=== PATIENT | female | born 1955 | race Caucasian/White ===

== ENCOUNTER 2020-09-12 09:41 | Day surgery (SDC) | payer OTHER ==
[~2020-09-12] VITALS: Ht 157.5 cm; Wt 59.2 kg
[~2020-09-12 09:41] MED LIST: ATOR40TA PO; LEVO50TA PO; PANT20TA4 PO
[2020-09-12 10:07] VITALS: BP 135/97
[2020-09-12] MEDS ORDERED: MIDAZOLAM 1 MG/ML, 2ML ONE (10:17)
[2020-09-12] MEDS ORDERED: FENTANYL PF 100 MCG/2ML ONE (10:18)
[2020-09-12] MEDS ORDERED: LACTATED RINGERS 1,000 ML IV SCH (10:30)
[2020-09-12] MEDS ORDERED: CHLORHEXIDINE 15 ML UDC MM ONE (10:30)
[2020-09-12] MEDS ORDERED: CEFAZOLIN 1,000 MG ONE (11:31)
[2020-09-12] MEDS ORDERED: ONDANSETRON 2MG/ML, 2ML ONE (11:31)
[2020-09-12] MEDS ORDERED: DEXAMETHASONE 4 MG/ML, 1ML ONE (11:31)
[2020-09-12] MEDS ORDERED: EPHEDRINE 50 MG/ML, 1ML ONE (11:31)
[2020-09-12] MEDS ORDERED: PROPOFOL 10 MG/ML, 20ML ONE (11:31)
[2020-09-12] MEDS ORDERED: FENTANYL PF 100 MCG/2ML IV PRN (12:30)
[2020-09-12] MEDS ORDERED: LABETALOL 5MG/ML, 20ML IV PRN (12:30)
[2020-09-12] MEDS ORDERED: PROMETHAZINE 25 MG/ML, 1ML IVPush PRN (12:30)
[2020-09-12] MEDS ORDERED: METOCLOPRAMIDE 5 MG/ML, 2ML IVPush PRN (12:30)
[2020-09-12] MEDS ORDERED: OXYcodone 5 MG/5 ML ORAL.SOL UDC PO PRN (12:30)
[2020-09-12] MEDS ORDERED: DIPHENHYDRAMINE 50 MG/ML, 1ML IVPush PRN (12:30)
[2020-09-12] MEDS ORDERED: EPHEDRINE 50 MG/ML, 1ML IVPush PRN (12:30)
[2020-09-12] MEDS ORDERED: HYDROmorphone 1 MG/ML, 1ML INJ IVPush PRN (12:30)
[2020-09-12] MEDS ORDERED: METOPROLOL 1 MG/ML, 5ML IV PRN (12:30)
[2020-09-12] MEDS ORDERED: HALOPERIDOL 5 MG/ML IV PRN (12:30)
[2020-09-12] MEDS ORDERED: hydrALAzine 20 MG/ML, 1ML IV PRN (12:30)
[2020-09-12] MEDS ORDERED: ACETAMINOPHEN 325 MG TABLET PO PRN (12:30)
[2020-09-12] MEDS ORDERED: LORazepam 2 MG/ML, 1ML IVPush PRN (12:30)
[2020-09-12] MEDS ORDERED: ONDANSETRON 2MG/ML, 2ML IVPush PRN (12:30)
== END 2020-09-12 14:45 | disposition home or self-care (01) ==
LOC: OUT 09:41
PROVIDERS: ATTEND Urology
DX: N30.20 Other chronic cystitis without hematuria (principal); E03.9 Hypothyroidism, unspecified; Z91.018 Allergy to other foods; Z85.51 Personal history of malignant neoplasm of bladder; Z20.822 Contact with and (suspected) exposure to COVID-19; Z79.899 Other long term (current) drug therapy; Z98.890 Other specified postprocedural states; Z72.89 Other problems related to lifestyle
CPT/HCPCS: 52204; 88305; 93005; J0690; J1100; J2250; J2405; J2704; J3010; J7120; U0003